=== PATIENT | male | born 1980 ===

== ENCOUNTER 2021-03-17 10:57 | Outpatient (CLI) | payer OTHER ==
--- NOTE | 2021-03-24 02:21 | XRAY Report ---
PROCEDURE: Elbow 3 View RT INDICATIONS: RIGHT ELBOW PAIN TECHNIQUE: 3 views of the elbow were acquired. COMPARISON: None FINDINGS: Bones: No fractures or dislocations. No suspicious bony lesions. Prominent olecranon spur. Soft tissues: No elbow joint effusion. No suspicious soft tissue calcifications. IMPRESSION: No visualized acute fracture or dislocation. However, occult injury cannot be excluded. Recommend david rt interval imaging follow-up in 7-10 days as clinically indicated for additional evaluation. Reviewed by: Shasha Feliciano MD on 03/24/2021 1:04 AM PDT Approved by: Shasha Feliciano MD on 03/24/2021 1:04 AM PDT Station ID: [id number]
== END 2021-03-17 10:58 | disposition home or self-care (01) ==
LOC: DI.N 10:57
PROVIDERS: ATTEND Physician Assistant
DX: M25.521 Pain in right elbow (principal)